=== PATIENT | female | born 1975 | race Caucasian/White ===

== ENCOUNTER 2017-01-05 08:11 | Day surgery (SDC) | payer OTHER ==
[~2017-01-05] VITALS: Ht 157.5 cm; Wt 73.3 kg
[2017-01-05 09:05] VITALS: Ht 157.5 cm; Wt 73.3 kg
[2017-01-05] MEDS ORDERED: HYDROCHLOROTHIAZIDE PO (09:10)
[2017-01-05 09:48] VITALS: BP 141/94; PULSE 92; RESP 18
[2017-01-05] MEDS ORDERED: FENTAnyl 50 MCG/ML VIAL ONE (10:00)
[2017-01-05] MEDS ORDERED: MIDAZOLAM 1 MG/ML 2 ML INJ ONE ×2 (10:00)
--- NOTE | 2017-01-05 10:00 | OPPN ---
Date/Time of Note Date/Time of Note DATE: 01/05/17 TIME: 09:59 Operative Report Preoperative Diagnosis Lower abdominal pain Postoperative Diagnosis Diverticulosis of the colon Operation/Procedure Performed Colonoscopy Provider: LAXMI JOHNSON MD Anesthesia Type: moderate sedation Estimated blood loss: none Transfusion Required: no Specimen: none Grafts/Implants: none Complications: no LAXMI JOHNSON MD Jan 05, 2017 10:00
[2017-01-05 10:25] VITALS: BP 119/88; PULSE 82; RESP 14
--- NOTE | 2017-01-05 11:22 | GILP ---
DATE OF PROCEDURE: PROCEDURE PERFORMED: Colonoscopy. SURGEON: Unique Osorio MD PREOPERATIVE DIAGNOSIS: Left lower quadrant abdominal pain. POSTOP DIAGNOSIS: 1. Diverticulosis of the colon. 2. No colon neoplasm was identified. INDICATION: Ms. Natali Silva is a 41-year-old female patient who had episodes of left lower quadrant abdominal pain. She had diverticulosis of the colon and episodes of diverticulitis. The patient never had a screening colonoscopy. The procedure and possible complications were well explained to the patient. She understood and consented to the procedure. DESCRIPTION OF PROCEDURE: Under the influence of fentanyl and Versed, the colonoscope was carefully introduced in the rectum. Under direct vision, it was advanced all the way to the cecum. Findings, the patient had diverticulosis of the sigmoid colon. No colon neoplasm was identified. She tolerated the procedure very well. There was no complication from the procedure. At the end of procedure, she was awake with stable vital signs and she was discharged home in the care of her family. IMPRESSION: Please see postop diagnoses. PLAN: 1. High fiber diet. 2. Next screening colonoscopy in 10 years. Dictated By: MD GELACIO Palmer/susanne/wing /Document#: [id number]
== END 2017-01-05 12:01 | disposition home or self-care (01) ==
LOC: GIL 08:11
PROVIDERS: ATTEND Internal Medicine Gastroenterology
DX: K57.90 Diverticulosis of intestine, part unspecified, without perforation or abscess without bleeding (principal); I10 Essential (primary) hypertension
CPT/HCPCS: 45378; 84703; J2250; J3010